=== PATIENT | female | born 1995 | race African-American/Black ===

== ENCOUNTER 2017-04-04 19:27 | Inpatient (IN) | payer MEDICAID ==
[~2017-04-04] VITALS: Ht 175.3 cm; Wt 80.3 kg
--- NOTE | ~2017-04-04 | OR ---
PATIENT'S NAME: DONI MICHAELS [facility] AGE: 22 Y [address] ROOM: [id number] [place], [place] [address] LOCATION: GOBS ADMIT DATE: 04/04/2017 OR/Procedure Report DISCHARGE DATE: FAMILY PHYSICIAN: ROCHELLE HOYOS MD ATTENDING PHYSICIAN: Katie Larkin SURGEON: Katie Larkin MD VACUUM WORKER: DATE OF PROCEDURE: 04/04/2017 This is a 22-year-old 2, para 0-0-1-0, who has an EDC of 04/06/2017. care was uncomplicated. Group B strep was negative. She presented to the office yesterday afternoon, was 3-4 cm. Nonstress test was reactive. She decided to go walk. When she returned to Labor and Delivery, she was 6-7 cm. heart tones remained reassuring. Group B strep testing was negative. She had some IV pain medicine and progressed on to 8-9 cm. Assisted rupture of membranes was performed with meconium-stained fluid. She stalled out at 8-9. Did require Pitocin augmentation with maximum of 3 milliunits per minute. She eventually did have an epidural, which allowed her to relax and bring the vertex down to the +2 station and complete. She pushed for a short time and delivered the vertex in the AMY position. Shoulders and body were delivered with a little bit of difficulty because of the mother being uncomfortable, but delivered and then baby was handed off to the high school mathematics teacher after the cord was doubly clamped and cut because of the meconium- stained fluid. Baby boy weighed 7 pounds 11 ounces. Three-vessel cord was noted. Placenta delivered spontaneously and intact. I did retrieve some extra membranes with the ring forceps. Her cervix was intact. I had cut a midline episiotomy after I infiltrated the perineum with 1% Xylocaine. 2-0 chromic was used to close the midline episiotomy and a small right periurethral laceration was closed with a [id number] of 3-0 chromic. Her lochia is normal. The patient is doing well in recovery. MD MAIDA TEIXEIRA/modl /[id number] d: 04/05/17718 t: 04/17/17 0857, OPERATIVE SUMMARY
[2017-04-04 20:51] LABS: BASOPHIL % 0.3 %; EOSINOPHIL % 0.3 %; HEMATOCRIT 42.6 % (33.0-46.0); HEMOGLOBIN 14.1 g/dL (11.0-15.0); IMMATURE GRANULOCYTE % 0.3 %; LYMPHOCYTE # 1.2 K/uL (0.8-4.0); MCH 26.4 pg (27.0-34.0); MCHC 33.1 gm/dL (32.0-36.5); MCV 79.8 fl (83.0-98.0); MONOCYTE # 0.5 K/uL (0.0-1.0); MONOCYTE % 6.7 %; MPV 13.6 fl (9.4-12.4); NEUTROPHIL # (ANC) 5.7 K/uL (1.8-7.8); NEUTROPHIL % 76.4 %; NRBC % 0 /100WBC (0-0.00); PLATELET COUNT 150 K/uL (150-450); RBC 5.34 M/uL (3.50-5.00); RDW-CV 14.2 % (11.9-14.6); WBC 7.5 K/uL (4.0-11.0)
[2017-04-04] MEDS ORDERED: PRENATAL 1+1)(P1 TAB PO (21:35)
[2017-04-04] MEDS ORDERED: TYLENOL EXTRA500 MG PO (21:35)
[2017-04-04] MEDS ORDERED: TUMS200 MG PO (21:35)
[2017-04-05 06:38] LABS: BICARBONATE 22.9 mmol/L (18.0-23.0); PCO2 46 mmHg (35-45); PO2 22 mmHg (80-90)
[2017-04-06 05:24] LABS: BASOPHIL % 0.2 %; EOSINOPHIL % 0.2 %; HEMATOCRIT 33.3 % (33.0-46.0); IMMATURE GRANULOCYTE # 0.1 K/uL (0.0-0.3); IMMATURE GRANULOCYTE % 0.5 %; LYMPHOCYTE # 1.8 K/uL (0.8-4.0); LYMPHOCYTE % 14.3 %; MCH 26.8 pg (27.0-34.0); MCV 81.2 fl (83.0-98.0); MONOCYTE # 0.9 K/uL (0.0-1.0); MONOCYTE % 7.1 %; MPV 13.8 fl (9.4-12.4); NEUTROPHIL # (ANC) 9.9 K/uL (1.8-7.8); NEUTROPHIL % 77.7 %; NRBC % 0 /100WBC (0-0.00); PLATELET COUNT 103 K/uL (150-450); RDW-CV 14.2 % (11.9-14.6); WBC 12.7 K/uL (4.0-11.0)
[2017-04-07] MEDS ORDERED: MOTRIN800 MG PO (09:26)
[2017-04-07] MEDS ORDERED: PERCOCET 5-3251 EACH PO (09:26)
== END 2017-04-07 13:50 | disposition disaster alternative care site (69) | DRG 775 ==
LOC: GOBM 19:27 → GOBS 19:27 → GOBM 19:50 → GOBS 19:51 → GOBM 20:12 → GOBS 04-07 13:50
PROVIDERS: ADMIT Obstetrics & Gynecology
PROC: 10907ZC Drainage of Amniotic Fluid, Therapeutic from Products of Conception, Via Natural or Artificial Opening (ICD-10-PCS; principal; 2017-04-04)
PROC: 10D07Z8 Extraction of Products of Conception, Other, Via Natural or Artificial Opening (ICD-10-PCS; principal; 2017-04-04)
PROC: 4A1HX4Z Monitoring of Products of Conception, Cardiac Electrical Activity, External Approach (ICD-10-PCS; principal; 2017-04-04)
PROC: 0W8NXZZ Division of Female Perineum, External Approach (ICD-10-PCS; principal; 2017-04-04)
DX: O70.9 Perineal laceration during delivery, unspecified (principal); O77.0 Labor and delivery complicated by meconium in amniotic fluid; Z3A.39 39 weeks gestation of pregnancy; Z37.0 Single live birth
CPT/HCPCS: J2001; J2590; J3010; J7120